=== PATIENT | female | born 1965 | race Two or more races ===

== ENCOUNTER 2020-12-17 15:07 | Outpatient (CLI) | payer BC, OTHER ==
[2020-12-17] MEDS ORDERED: GLUC1CAP18 PO (16:06)
[2020-12-17] MEDS ORDERED: ASCO500T8 PO (16:06)
[2020-12-17] MEDS ORDERED: KRIL1CAP5 PO (16:06)
[2020-12-17] MEDS ORDERED: CHOL10003 PO (16:06)
[2020-12-17] MEDS ORDERED: MONT10TA17 PO (16:06)
[2020-12-17] MEDS ORDERED: METF500T17 PO (16:06)
[2020-12-17] MEDS ORDERED: IBUP-1223 PO (16:06)
[2020-12-17] MEDS ORDERED: PANC1CAP PO (16:06)
[2020-12-17] MEDS ORDERED: LISI-167 PO (16:06)
[2020-12-17] MEDS ORDERED: PRED5TAB PO (16:06)
[2020-12-17] MEDS ORDERED: VIT1CAPS51 PO (16:06)
== END 2020-12-17 23:59 | disposition home or self-care (01) ==
LOC: STAR 15:07
PROVIDERS: ATTEND Urology
DX: Z20.822 Contact with and (suspected) exposure to COVID-19 (principal); N20.0 Calculus of kidney
CPT/HCPCS: U0003

== ENCOUNTER 2020-12-21 10:05 | Day surgery (SDC) | payer BC, OTHER ==
[~2020-12-21] VITALS: Ht 160 cm; Wt 79.8 kg
[~2020-12-21 10:05] MED LIST: ASCO500T8 PO; CHOL10003 PO; GLUC1CAP18 PO; IBUP-1223 PO; KRIL1CAP5 PO; LISI-167 PO; METF500T17 PO; MONT10TA17 PO; PANC1CAP PO; PRED5TAB PO; VIT1CAPS51 PO
[2020-12-21] MEDS ORDERED: MIDAZOLAM 1 MG/ML, 2ML ONE (10:46)
[2020-12-21] MEDS ORDERED: FENTANYL PF 250 MCG/5ML ONE (10:46)
[2020-12-21 10:54] VITALS: BP 137/88
[2020-12-21] MEDS ORDERED: CHLORHEXIDINE 15 ML UDC PO ONE (11:00)
[2020-12-21] MEDS ORDERED: LACTATED RINGERS 1,000 ML IV SCH (11:00)
[2020-12-21] MEDS ORDERED: CHLORHEXIDINE 15 ML UDC ONE (11:01)
[2020-12-21] MEDS ORDERED: EPHEDRINE 50 MG/ML, 1ML ONE (12:59)
[2020-12-21] MEDS ORDERED: ROCURONIUM 10 MG/ML,10ML ONE (12:59)
[2020-12-21] MEDS ORDERED: CEFAZOLIN 1,000 MG ONE (12:59)
[2020-12-21] MEDS ORDERED: PHENYLEPHRINE 10 MG/ML ONE (12:59)
[2020-12-21] MEDS ORDERED: PROPOFOL 10 MG/ML, 20ML ONE (12:59)
[2020-12-21] MEDS ORDERED: MEPERIDINE/PF 25MG/0.5ML IVPush PRN (14:00)
[2020-12-21] MEDS ORDERED: METOPROLOL 1 MG/ML, 5ML IV PRN (14:00)
[2020-12-21] MEDS ORDERED: LABETALOL 5MG/ML, 20ML IV PRN (14:00)
[2020-12-21] MEDS ORDERED: DIPHENHYDRAMINE 50 MG/ML, 1ML IVPush PRN (14:00)
[2020-12-21] MEDS ORDERED: HYDROmorphone 1 MG/ML, 1ML INJ IVPush PRN (14:00)
[2020-12-21] MEDS ORDERED: EPHEDRINE 50 MG/ML, 1ML IVPush PRN (14:00)
[2020-12-21] MEDS ORDERED: ONDANSETRON 2MG/ML, 2ML IVPush PRN (14:00)
[2020-12-21] MEDS ORDERED: hydrALAzine 20 MG/ML, 1ML IV PRN (14:00)
[2020-12-21] MEDS ORDERED: ALBUTEROL/IPRATROPIUM 2.5MG/0.5MG, 3 ML NPPB PRN (14:00)
[2020-12-21] MEDS ORDERED: ALBUTEROL SULFATE 2.5 MG/3 ML NPPB PRN (14:00)
[2020-12-21] MEDS ORDERED: HALOPERIDOL 5 MG/ML IV PRN (14:00)
[2020-12-21] MEDS ORDERED: OXYcodone 5 MG/5 ML ORAL.SOL UDC PO PRN (14:00)
[2020-12-21] MEDS ORDERED: ACETAMINOPHEN 325 MG TABLET PO PRN (14:00)
[2020-12-21] MEDS ORDERED: DIAZEPAM 5 MG/ML, 2ML IVPush PRN (14:00)
[2020-12-21] MEDS ORDERED: PROMETHAZINE 25 MG/ML, 1ML IVPush PRN (14:00)
[2020-12-21] MEDS ORDERED: FENTANYL PF 100 MCG/2ML IV PRN (14:00)
[2020-12-21] MEDS ORDERED: KETOROLAC 30 MG/1 ML IVPush PRN (14:00)
[2020-12-21] MEDS ORDERED: METOCLOPRAMIDE 5 MG/ML, 2ML IVPush PRN (14:00)
[2020-12-21] MEDS ORDERED: HYDROmorphone 1 MG/ML, 1ML INJ ONE (14:20)
[2020-12-21] MEDS ORDERED: SUGAMMADEX 200 MG/2 ML IVPush ONE (14:37)
[2020-12-21] MEDS ORDERED: FENTANYL PF 100 MCG/2ML ONE (14:40)
[2020-12-21] MEDS ORDERED: ALBUTEROL HFA 90 MCG/SPRAY ONE ×4 (14:54→15:06)
[2020-12-21] MEDS ORDERED: DEXAMETHASONE 4 MG/ML, 1ML ONE ×2 (15:06)
[2020-12-21] MEDS ORDERED: ONDANSETRON 2MG/ML, 2ML ONE (15:07)
[2020-12-21] MEDS ORDERED: FUROSEMIDE 20 MG/2 ML ONE (15:15)
== END 2020-12-21 18:35 | disposition home or self-care (01) ==
LOC: OUT 10:05
PROVIDERS: ATTEND Urology
DX: N20.0 Calculus of kidney (principal); E11.9 Type 2 diabetes mellitus without complications; I10 Essential (primary) hypertension; Z79.84 Long term (current) use of oral hypoglycemic drugs; Z79.899 Other long term (current) drug therapy; Z87.442 Personal history of urinary calculi; Z90.49 Acquired absence of other specified parts of digestive tract; Z84.1 Family history of disorders of kidney and ureter
CPT/HCPCS: 52356; 74018; 82962; C1769; C2617; J0690; J1100; J1170; J1940; J2250; J2370; J2405; J2704; J3010; J7120; 76000